=== PATIENT | female | born 1940 | race Caucasian/White ===

== ENCOUNTER → 2023-10-23 10:45 | Outpatient (REF) | payer OTHER, SELFPAY | LOC: HWRAD 10:45 | PROVIDERS: ATTENDING PHYSICIAN Urology; FAMILY PHYSICIAN Internal Medicine | DX: R33.9 Retention of urine, unspecified (principal); N39.3 Stress incontinence (female) (male); N39.41 Urge incontinence; N31.9 Neuromuscular dysfunction of bladder, unspecified; N95.2 Postmenopausal atrophic vaginitis | CPT/HCPCS: 76770 ==